=== PATIENT | female | born 2000 | race Caucasian/White ===

== ENCOUNTER 2018-01-25 19:53 | Emergency (ER) | payer OTHER ==
[2018-01-25 21:53] LABS: URINE PH (Dip) POC 5.5 (5.0-8.5)
[2018-01-25 21:53] LABS: URINE BLOOD (Dip) POC 3+ (NEGATIVE); URINE GLUCOSE (Dip) POC Negative (NEGATIVE); URINE KETONES (Dip) POC 4+ (NEGATIVE); URINE LEUKOCYTE EST (Dip) POC Negative (NEGATIVE); URINE NITRITE (Dip) POC Negative (NEGATIVE); URINE TOTAL PROTEIN POC Negative (NEGATIVE)
[2018-01-25] MEDS: ONDANSETRON (ODT) 4 MG TAB ODT (22:35)
== END 2018-01-25 23:11 | disposition home or self-care (01) ==
LOC: FTE 19:53
DX: R10.2 Pelvic and perineal pain (principal); J45.909 Unspecified asthma, uncomplicated; R11.0 Nausea; Z97.5 Presence of (intrauterine) contraceptive device
CPT/HCPCS: 81003; 81025; 82962; 99283